=== PATIENT | male | born 1955 | race Caucasian/White ===

== ENCOUNTER 2023-09-13 07:10 | Emergency (ER) | payer MEDICARE, OTHER, SELFPAY ==
[2023-09-13 07:12] VITALS: BP 143/87
[2023-09-13 08:01] VITALS: BP 132/93
[2023-09-13 08:06] VITALS: BMI 27.9
--- NOTE | 2023-09-13 08:12 | ED.GENMED ---
History of Present Illness
General
Chief Complaint: Cold/Flu/URI Symptoms
Source: patient
Exam Limitations: none
Time Seen by Provider: 09/13/23 07:59
Travel History
Have you had any contact with someone who has COVID-19?: No
Do you have any symptoms of coronavirus? Fever > 100 degrees, chills, cough, shortness of breath, sore throat, loss of taste or smell, muscle aches, or headache?: Yes
Symptoms:: cough
History of Present Illness
History of Present Illness:
68-year-old male presents with progressively worsening cough over the past month stated sweats and chills and occasional shortness of breath. He notes a metallic taste in the back of his mouth. He tested for COVID last week which was negative. He
has a loss of appetite and has lost 4 pounds. He denies leg swelling or calf pain. He does travel frequently for his job. He is consistently flying. The cough is made worse when he lays flat. He notes the pain in his back when he coughs. He
denies hemoptysis. He is not anticoagulated. He also adds that he has been unable to obtain an erection over the past 2 to 3 weeks. He denies any numbness. He is urinating well and moving his bowels normally he denies significant lower back pain
Phy Exam
Physical Exam
Physical Exam:
General: Well-appearing male no acute respiratory distress
HEENT: Normocephalic atraumatic
Heart: Regular rate and rhythm no murmur
Lungs: Clear no obvious wheeze or rales
Abdomen soft nontender nondistended no guarding rebound normal bowel sounds
Extremities: No cyanosis or edema
Skin: Warm without rashes
Course
Orders/Labs/Results
Orders:
Orders
09/13/23 08:10
COVID-19 Antigen Urgent
Source: Nasal Swab
Complete Blood Count/With Diff Urgent
Comprehensive Metabolic Panel Urgent
Influenza A+B Rapid Molecular Urgent
CLARISA Source: Nasal Swab
Specimen Description:
09/13/23 08:12
Electrocardiogram (*1) Urgent
Reason for Study: Shortness of Breath
EKG- Treatment ONCE
CR Chest - 2 Views Urgent
Comment:
Reason For Exam: cough, sob
09/13/23 08:14
D-Dimer Urgent
NT-proBNP Urgent
09/13/23 08:55
CT Chest Pe Study Urgent
Comment:
Reason For Exam: cough, sob, elevated d-dimer
Abnormal Lab Results
09/13/23 09/13/23
08:10 08:14
RBC 4.58 L 10^6/uL
(4.70-6.10)
Absolute Neuts (auto) 6.9 H 10^3/uL
(1.4-6.5)
Absolute Monos (auto) 0.8 H 10^3/uL
(0.1-0.6)
Lymphocytes % 16.1 L %
(20.5-51.1)
D-Dimer 1.21 H ug/mlFEU
(0.00-0.50)
Carbon Dioxide 32 H mmol/L
(22-30)
Albumin 3.3 L g/dl
(3.5-5.0)
09/13/23 08:10
09/13/23 08:10
Vital Signs
Initial and Last Documented VS:
Initial Vital Signs
Temp Pulse Resp BP Pulse Ox
98.1 F 87 18 143/87 98
09/13/23 07:12 09/13/23 07:12 09/13/23 07:12 09/13/23 07:12 09/13/23 07:12
Last Documented Vital Signs
Temp Pulse Resp BP Pulse Ox
98.1 F 80 17 132/93 99
09/13/23 07:12 09/13/23 08:15 09/13/23 08:15 09/13/23 08:01 09/13/23 08:15
MDM/Problems Addressed
Differential Diagnosis Includes:
Cough. Differential could include bronchitis versus pneumonia versus COPD versus pulmonary embolism versus heart failure
Patient does travel quite frequently. D-dimer pending although he is not tachycardic nor is he hypoxic. Will check labs and chest x-ray. EKG BMP pending as well.
History not suggest any red flag symptoms of cauda equina. Do not feel the erectile dysfunction is directly related to the cough he is experiencing. Will recommend follow-up with urology
*Critical Care Note
Total Time (30-74mins, 75-104mins- exclusive of procedures): Not Applicable
Update Note
Update Note:
Chest x-ray shows consolidation right middle lobe. D-dimer was elevated at 1.2. This was followed by CT scan which demonstrates dense consolidation measuring 4 cm in the periphery of the right middle lobe. Consider underlying pneumonia but cannot
exclude occult neoplastic status. Explained these results to the patient and print out the report. Will provide coverage for community-acquired pneumonia and recommend he follow-up with family doctor closely for further evaluation
Spoke with patient's family doctor, Dr. Alicia to relay information and importance for follow-up
ED Attending Note
-
Portions of this chart may have been created with voice recognition software.� Occasional wrong word or��sound alike� substitutions may have occurred due to the inherent limitations of voice recognition software.
Discharge Plan
Departure
Patient Disposition: Home (Routine Discharge)
Date of Disposition: 09/13/23
Time of Disposition: 10:21
Patient with high blood pressure during this ER visit?: No
Discharge Problem:
Pneumonia
Instructions: Pneumonia
Prescriptions:
New
azithromycin [Zithromax] 250 mg tablet
250 mg PO DAILY 6 Days Qty: 6 0RF
cefdinir 300 mg capsule
300 mg PO BID 10 Days Qty: 20 0RF
No Action
tamsulosin [Flomax] 0.4 mg Capsule
0.4 mg PO DAILY
chlordiazepoxide-clidinium 5-2.5 mg Capsule
1 cap PO ACHS
irbesartan 75 mg Tablet
75 mg PO DAILY
calcium carbonate-vit D3-min [Calcium-Vitamin D] 600 mg calcium- 400 unit Tablet
1 tab PO DAILY
Referrals:
UNKNOWN - PT DOES,NOT KNOW [Family Provider] -
Activity Restrictions/Additional Instructions:
Please take antibiotics as directed. As discussed you will need follow-up for your CAT scan findings today. Please follow-up with your family doctor for recheck tension or further imaging. Return for worsening symptoms otherwise
Interventions
Interventions:
*Risk Screen - Suicide Last Done: 09/13/23 08:06
*General Assessment Last Done: 09/13/23 08:06
*Neglect/Abuse Screening Last Done: 09/13/23 08:06
ED- Fall Risk Assessment Last Done: 09/13/23 08:06
*ED COVID-19 Vaccine History Last Done: 09/13/23 08:06
ED- Pulmonary Assessment Last Done: 09/13/23 08:06
[2023-09-13 08:19] LABS: % Basophils 0.3 % (0-2); % Eosinophils 0.8 % (0-6); % Immature Granulocytes 0.3 % (0-0.5); % Lymphocytes 16.1 % (20.5-51.1); % Monocytes 8.5 % (1.7-9.3); Absolute Eosinophils 0.1 10^3/uL (0-0.7); Absolute Lymphocytes 1.5 10^3/uL (1.2-3.4); Absolute Monocytes 0.8 10^3/uL (0.1-0.6); Absolute Neutrophils 6.9 10^3/uL (1.4-6.5); Hematocrit 40.9 % (39.0-52.0); Hemoglobin 13.9 g/dL (13.0-18.0); Mean Corpuscular Hgb 30.3 pg (27.0-31.0); Mean Corpuscular Volume 89.3 fL (80.0-94.0); Mean Platelet Volume 8.2 fL (7.4-10.4); Nucleated Red Blood Cells % 0 % (-); Platelet Count 313 10^3/uL (130-400); Red Blood Cell Count 4.58 10^6/uL (4.70-6.10); Red Cell Dist. Width 11.9 % (11.5-14.5); White Blood Cell Count 9.3 10^3/uL (4.8-10.8)
[2023-09-13 08:33] LABS: ALT (SGPT) 27 U/L (0-50); AST (SGOT) 24 U/L (17-59); Albumin 3.3 g/dl (3.5-5.0); Alkaline Phosphatase 95 U/L (38-126); Blood Urea Nitrogen 13 mg/dl (9-20); Calcium 8.8 mg/dl (8.4-10.2); Carbon Dioxide 32 mmol/L (22-30); Chloride 101 mmol/L (98-107); Estimated Creatinine Clearance 81 ml/min; Glucose 96 mg/dl (70-99); Potassium 3.7 mmol/L (3.5-5.1); Sodium 135 mmol/L (135-145); Total Bilirubin 0.9 mg/dl (0.2-1.3); Total Protein 6.3 g/dl (6.3-8.2); eGFR > 60.00
[2023-09-13 08:36] LABS: COVID-19 Antigen Negative (Negative)
[2023-09-13 08:41] LABS: NT-proBNP 182 pg/ml
[2023-09-13 08:44] LABS: D-Dimer 1.21 ug/mlFEU (0.00-0.50)
[2023-09-13 09:32] VITALS: BP 123/77
[2023-09-13 10:00] VITALS: BP 113/71
== END 2023-09-13 10:41 | disposition home or self-care (01) ==
LOC: EMR 07:10
PROVIDERS: Physician Assistant; EMERGENCY PHYSICIAN Emergency Medicine
DX: J18.9 Pneumonia, unspecified organism (principal)
CPT/HCPCS: 99284; 71046; 71275; 80053; 83880; 85025; 85379; 87502; 87811; 93005; Q9967

== ENCOUNTER → 2023-11-05 08:12 | Outpatient (REF) | payer MEDICARE, OTHER, SELFPAY | LOC: RAD 08:12 | PROVIDERS: ATTENDING PHYSICIAN Family Medicine Sleep Medicine | DX: R91.8 Other nonspecific abnormal finding of lung field (principal) | CPT/HCPCS: 71260; Q9967 ==